=== PATIENT | female | born 1980 | race Caucasian/White ===

== ENCOUNTER 2018-04-26 13:43 | Emergency (ER) | payer SELFPAY ==
--- NOTE | 2018-04-26 14:25 | EDPHYS ---
Physician Documentation [facility] Name: Arabella Paulino Age: 38 yrs Sex: Female : 1980 Arrival Date: 04/26/2018 Time: 13:46 Bed 14 Private MD: None, None ED Physician Redd Jones HPI: 04/26 14:19 This 38 yrs old Female presents to ER via Ambulatory with complaints of jmm Hemorrhoids. 14:19 The patient presents to the emergency department with pain in the rectal area. Onset: jmm The symptoms/episode began/occurred gradually, 3 day(s) ago. Associate signs and symptoms: Pertinent positives: lower GI bleeding, bright red. This is a 38 year old female with no chronic medical conditions that presents to the ED with rectal pain, swelling, bleeding beginning this past Thursday. Symptoms are worsened with bowel movements. Denies fever, denies abdominal pain, denies generalized weakness. . 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 - Social history:: Smoking status: Patient uses tobacco products, smokes one-half pack cigarettes per day, Patient uses alcohol, occasionally. - Ebola Screening: : Patient negative for fever greater than or equal to 101.5 degrees Fahrenheit, and additional compatible Ebola Virus Disease symptoms Patient denies exposure to infectious person Patient denies travel to an Ebola-affected area in the 21 days before illness onset. ROS: 14:19 Constitutional: Negative for fever, chills, and weight loss. jmm 14:19 Abdomen/GI: Positive for rectal bleeding. 14:19 All other systems are negative. Exam: 14:19 Head/Face: atraumatic. jmm 14:19 Constitutional: The patient appears in no acute distress, alert, awake. 14:19 Cardiovascular: Rate: normal. 14:19 Respiratory: the patient does not display signs of respiratory distress, Respirations: normal. 14:19 Abdomen/GI: Rectal exam: hemorrhoid(s), external, with inflammation, with pain, without bleeding, without thrombosis. 14:19 Back: ROM is normal. 14:19 Musculoskeletal/extremity: ROM: intact in all extremities. 14:19 Skin: Appearance: Color: normal in color. 14:19 Neuro: Orientation: is normal, Mentation: is normal, Memory: is normal. 14:19 Psych: Behavior/mood is pleasant, cooperative. Vital Signs: 13:51 BP 109 / 78; Pulse 82; Resp 18; Temp 98.0(O); Pulse Ox 97% on R/A; Weight 58.06 kg; hj Height 5 ft. 3 in. (160.02 cm); Pain 6/10; 13:51 Body Mass Index 22.67 (58.06 kg, 160.02 cm) hj MDM: 14:18 Patient medically screened. wade 14:19 Data reviewed: vital signs, nurses notes. Counseling: I had a detailed discussion with wade the patient and/or guardian regarding: the historical points, exam findings, and any diagnostic results supporting the discharge/admit diagnosis, radiology results, the need for outpatient follow up, to return to the emergency department if symptoms worsen or persist or if there are any questions or concerns that arise at home. ED course: Hemorrhoids appear non thrombosed, patient will be put on a rectal steriods and given follow up with GI. I do not currently suspect an acute intraabdominal process at this time. . Administered Medications: No medications were administered Disposition: 21:13 Co-signature as Attending Physician, Redd Jones MD. Disposition: 04/26/18 14:24 Discharged to Home. Impression: Other hemorrhoids. - Condition is Stable. - Discharge Instructions: Hemorrhoids, Sitz Bath. - Prescriptions for Anusol- HC 2.5 % Rectal Cream - Apply to affected area 1 application by TOPICAL route every 8 hours As needed; 30 gram. Colace 100 mg Oral Tablet - take 1 tablet by ORAL route every 12 hours; 14 tablet. - Medication Reconciliation Form, Thank You Letter, Antibiotic Education, Prescription Opioid Use, Work release form form. - Follow up: Lalo Rudolph MD; When: 2 - 3 days; Reason: Continuance of care. Signatures: Leo Kapadia PA PA jmm Joaquin, Henry, RN RN hj Yajaira Adkins RN RN jl7 Redd Jones MD MD Corrections: (The following items were deleted from the chart) 14:34 14:24 04/26/2018 14:24 Discharged to Home. Impression: Other hemorrhoids. Condition is jl7 Stable. Forms are Medication Reconciliation Form, Thank You Letter, Antibiotic Education, Prescription Opioid Use. Follow up: Lalo Rudolph; When: 2 - 3 days; Reason: Continuance of care. wade
--- NOTE | 2018-04-26 14:25 | ER ---
Nurse's Notes [facility] Name: Arabella Paulino Age: 38 yrs Sex: Female : 1980 Arrival Date: 04/26/2018 Time: 13:46 Bed 14 Private MD: None, None Diagnosis: Other hemorrhoids Presentation: 04/26 13:48 Presenting complaint: Patient states: i started having bleeding hemorrhoids since Thursday last week until today; feels like im sitting on glass; used preparation H but its not helping;. Transition of care: patient was not received from another setting of care. Onset of symptoms was April 26, 2018. Risk Assessment: Do you want to hurt yourself or someone else? Patient reports no desire to harm self or others. Initial Sepsis Screen: Does the patient meet any 2 criteria? No. Patient's initial sepsis screen is negative. Does the patient have a suspected source of infection? No. Patient's initial sepsis screen is negative. Care prior to arrival: None. 13:48 Method Of Arrival: Ambulatory 13:48 Acuity: FRANKO 4 Triage Assessment: 13:50 General: Appears in no apparent distress. uncomfortable, Behavior is calm, cooperative, hj appropriate for age. Pain: Complains of pain in rectum Pain currently is 6 out of 10 on a pain scale. 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 - Social history:: Smoking status: Patient uses tobacco products, smokes one-half pack cigarettes per day, Patient uses alcohol, occasionally. - Ebola Screening: : Patient negative for fever greater than or equal to 101.5 degrees Fahrenheit, and additional compatible Ebola Virus Disease symptoms Patient denies exposure to infectious person Patient denies travel to an Ebola-affected area in the 21 days before illness onset. Screenin:50 Abuse screen: Denies threats or abuse. Denies injuries from another. Nutritional hj screening: No deficits noted. Tuberculosis screening: No symptoms or risk factors identified. Fall Risk None identified. Assessment: 14:15 General: Appears in no apparent distress. uncomfortable, Behavior is calm, cooperative, jl7 appropriate for age. Pain: Complains of pain in rectum Pain does not radiate. Pain currently is 5 out of 10 on a pain scale. at worst was 10 out of 10 on a pain scale. Quality of pain is described as "Pain" Pain began 2-3 days ago. Is intermittent. Neuro: Level of Consciousness is awake, alert, obeys commands, Oriented to person, place, time, situation. Cardiovascular: Patient's skin is warm and dry. Respiratory: Airway is patent Respiratory effort is even, unlabored, Respiratory pattern is regular, symmetrical. GI: Rectal exam: Hemorrhoids noted. Derm: Skin is pink, warm \\T\\ dry. Vital Signs: 13:51 BP 109 / 78; Pulse 82; Resp 18; Temp 98.0(O); Pulse Ox 97% on R/A; Weight 58.06 kg; hj Height 5 ft. 3 in. (160.02 cm); Pain 6/10; 13:51 Body Mass Index 22.67 (58.06 kg, 160.02 cm) ED Course: 13:46 Patient arrived in ED. mr 13:47 None, None is Private Physician. mr 13:49 Triage completed. hj 13:51 Arm band placed on right wrist. hj 13:52 Patient has correct armband on for positive identification. Placed in gown. Bed in low hj position. Call light in reach. Side rails up X 1. 13:54 Leo Kapadia PA is PHCP. [facility] 13:54 Redd Jones MD is Attending Physician. 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 jl7 14:23 Yajaira Adkins, QUE is Primary Nurse. jl7 14:24 Lalo Rudolph MD is Referral Physician. [facility] 14:32 Patient did not have IV access during this emergency room visit. jl7 Administered Medications: No medications were administered Outcome: 14:24 Discharge ordered by . [facility] 14:32 Discharged to home ambulatory. 7 14:32 Condition: stable 14:32 Discharge instructions given to patient, Instructed on discharge instructions, follow up and referral plans. medication usage, Demonstrated understanding of instructions, follow-up care, medications, Prescriptions given X 2. 14:34 Patient left the ED. 7 Signatures: Leo Kapadia PA PA jmm Rivera, Maria mr Jose AlbertoTim pelletier, RN RN hj Yajaira Adkins RN RN jl7 Corrections: (The following items were deleted from the chart) 13:53 13:51 Pulse 82bpm; Resp 18bpm; Pulse Ox 97% RA; Temp 98.0F Oral; 58.06 kg; Height 5 ft. hj 3 in.; BMI: 22.6; Pain 6/10; hj
== END 2018-04-26 14:34 | disposition home or self-care (01) ==
LOC: ER 13:43
DX: K64.8 Other hemorrhoids (principal); F17.210 Nicotine dependence, cigarettes, uncomplicated
CPT/HCPCS: 99283